=== PATIENT | male | born 1980 | race Asian ===

== ENCOUNTER 2017-01-19 10:22 | Emergency (ER) | payer MEDICAID, OTHER ==
--- NOTE | 2017-01-19 10:34 | CPEKG ---
Heart Rate: 64 RR Interval: 938 P-R Interval: 120 QRSD Interval: 102 QT Interval: 400 QTC Interval: 413 P [place]: 41 QRS [place]: 45 T Wave [place]: 23 EKG Severity - NORMAL ECG - EKG Impression: SINUS RHYTHM Electronically Signed By: Merrill Escalante 19-Jan-2017 13:44:19
[2017-01-19] MEDS ORDERED: NS 500 ML IV ONE (10:35)
[2017-01-19 10:41] VITALS: TEMP 97.5
[2017-01-19 10:54] LABS: % IMMATURE GRANULYOCYTES 0.1 % (0.0-1.1); ABSOLUTE IMMATURE GRANULOCYTES 0.01 10^3/uL (0.00-0.10); ADD DIFF? NO; ADD MORPH? NO; ADD SCAN? NO; ATYPICAL LYMPHOCYTE FLAG 0 (0-99); FRAGMENT RBC FLAG 0 (0-99); HEMATOCRIT 42.8 % (40.0-51.0); HEMOGLOBIN 14.2 g/dL (13.7-17.5); LEFT SHIFT FLG 0 (0-99); LIPEMIA HEMOLYSIS FLAG 80 (0-99); MEAN CELL HEMOGLOBIN 28.7 pg (27.9-34.1); MEAN CELL HEMOGLOBIN CONCENTR. 33.2 g/dL (32.4-36.7); MEAN CELL VOLUME 86.6 fL (81.5-99.8); MEAN PLATELET VOLUME 9.4 fL (8.7-11.7); PLATELET CLUMPS FLAG 30 (0-99); PLATELET COUNT 319 10^3/uL (150-400); RED BLOOD CELL COUNT 4.94 10^6/uL (4.40-6.38); RED CELL DISTRIBUTION WIDTH 13.4 % (11.5-15.2)
[2017-01-19 11:03] LABS: ANION GAP 10 mEq/L (8-16); CALCIUM 8.7 mg/dL (8.5-10.4); CARBON DIOXIDE 24 mEq/l (22-31); CHLORIDE 109 mEq/L (97-110); CREATININE 0.8 mg/dL (0.7-1.3); GLOMERULAR FILTRATION RATE > 60; GLUCOSE 102 mg/dL (70-100); POTASSIUM 4.2 mEq/L (3.5-5.2); SODIUM 143 mEq/L (134-144)
--- NOTE | 2017-01-19 11:03 | EDPHY ---
H & P Stated Complaint: Chest pain since 5am Time Seen by Provider: 01/19/17 10:35 - Personal History Current Tetanus Diphtheria and Acellular Pertussis (TDAP): Unsure - Medical/Surgical History Hx Asthma: No Hx Chronic Respiratory Disease: No Hx Diabetes: No Hx Cardiac Disease: No Hx Renal Disease: No Hx Cirrhosis: No Hx Alcoholism: No Hx HIV/AIDS: No Hx Splenectomy or Spleen Trauma: No Other PMH: DEAF. gerd - Social History Smoking Status: Never smoked Constitutional: Initial Vital Signs Temperature (C) 36.4 C 01/19/17 10:39 Heart Rate 63 01/19/17 10:39 Respiratory Rate 15 01/19/17 10:39 Blood Pressure 132/57 H 01/19/17 10:39 O2 Sat (%) 94 01/19/17 10:39 O2 Delivery Mode Room Air Allergies/Adverse Reactions: No Known Allergies Allergy (Unverified 02/09/12 17:36) Home Medications: Medication Instructions Recorded Ondansetron Odt [Zofran Odt] 4 mg PO Q4PRN PRN #20 tab 07/29/14 Tamsulosin HCl [Flomax] 0.4 mg PO DAILY PRN #5 cap 07/29/14 oxyCODONE/APAP 5/325 [Percocet 1 - 2 tab PO Q6-8PRN PRN #20 tab 07/29/14 5/325 (RX)] Medical Decision Making - Diagnostics Imaging Results: Imaging Impressions Chest X-Ray 01/19/17 10:36 Impression: Normal. No explanation for chest pain. Chest/Thorax CTA 01/19/17 11:34 Impression: 1. No visible pulmonary embolus. 2. Fatty liver. 3. Minimal central peribronchial thickening which could be related to mild airways disease/bronchitis. Findings discussed with Merrill Escalante MD, on 01/19/2017 at 1219 hours. ED Course/Re-evaluation: CHIEF COMPLAINT: Chest pain HISTORY OF PRESENT ILLNESS: 36-year-old deaf not believe gentleman. Am gathering information through a neck believe [employer] email designer actually in [facility] on his iPhone. He states that he had sharp chest pain this morning woke him from sleep at about 4:00 a.m.. He has had it before intermittently. He denies any shortness of breath nausea vomiting lightheadedness dizziness or any other symptoms. He states that the pain is sharp in a small area of his left chest that feels like a knife is stabbing. Denies any tightness, pressure, radiation of pain. He apparently has had this before in according to his it has been related to anxiety. His is currently out of town for 4 weeks and she believes via the phone that he is having anxiety once again. REVIEW OF SYSTEMS: A 10 point review of systems was performed and is negative with the exception of the elements mentioned in the history of present illness. PHYSICAL EXAM: HR, BP, O2 Sat, RR. Temp noted General Appearance: Alert, well hydrated, appropriate, and non-toxic appearing. Head: Atraumatic without scalp tenderness or obvious injury Eyes: Pupils equal, round, reactive to light and accommodation, EOMI, no trauma , no injection. Ears: Clear bilaterally, no perforation, normal landmarks Nose: Atraumatic, no rhinorrhea, clear. Throat: There is no erythema or exudates, no lesions, normal tonsils, mucus membranes moist. Neck: Supple, 2+ carotid upstroke, nontender, no lymphadenopathy. Respiratory: No retractions, no distress, no wheezes, and no accessory muscle use. Lungs are clear to auscultation bilaterally. Cardiovascular: Regular rate and rhythm, no murmurs, rubs, or gallops. Bilateral carotid, radial, dorsalis pedis, and posterior tibial pulses intact. Good capillary refill all extremities. Gastrointestinal: Abdomen is soft, nontender, non-distended, no masses, no rebound, no guarding, no peritoneal signs. Musculoskeletal: Normal active ROM of all extremities, atraumatic. Neurological: Alert, appropriate, and interactive. The patient has normal DTRs and non-focal cranial nerves, motor, sensory, and cerebellar exam. Skin: No rashes, good turgor, no nodules on palpation. Past medical history: Deaf otherwise unremarkable Past surgical history: Unremarkable Family history: Denies any significant cardiac history Social history: , employed, does not abuse tobacco drugs or alcohol DIAGNOSTICS/PROCEDURES/CRITICAL CARE TIME: The 12 lead EKG was interpreted by myself. See hard copy and/or "tracemaster" electronic copy for interpretation. Sinus mechanism no ischemia normal intervals Study: PA and Lateral Chest X-ray Indication: chest pain Results: After viewing the images myself on the PACS system. My interpretation of the images is: no acute process. The radiologist interpretation is pending at the time of this dictation. I have discussed the above x-rays with the radiologist. Study: CT angiography of the chest Indication: sharp pleuritic chest pain with elevated D-dimer Results: CT scan of the chest was obtained. The results of the study are normal. The study was read by the radiologist, Dr. Kraig Elkins. I viewed the images myself on the PACS system. DIFFERENTIAL DIAGNOSIS: The differential diagnosis for the patient's chest pain included but was not limited to myocardial ischemia, pulmonary embolus, chest wall pain, pleural inflammation, and pulmonary infectious causes. MEDICAL DECISION MAKING: This patient presents with atypical sharp chest pain which is mild and has resolved. In addition he has no associated symptoms or radiation of pain. In addition he is young with no significant family history of coronary artery disease. Once again all this information is obtained through the [email or web address] email designer on the phone in [facility]. We have an Radha director of customer acquisition coming. Laboratory studies chest x-ray and EKG are pending. 11:34 Elevated D-dimer. Plan for CT angiogram chest. Patient's chest CT and EKG and laboratory studies are unremarkable. This patient is having some sort of atypical chest pain in a young age group and I will discharge him home with close follow-up. His believes he is having anxiety since she has been gone for 2 weeks and he has presented like this in the past. She is on the iPhone with us and thinks he looks fine. - Data Points Laboratory Results: Laboratory Results 01/19/17 10:43 01/19/17 10:43 01/19/17 01/19/17 01/19/17 10:43 10:43 10:43 WBC 6.71 10^3/uL 10^3/uL (3.80-9.50) RBC 4.94 10^6/uL 10^6/uL (4.40-6.38) Hgb 14.2 g/dL g/dL (13.7-17.5) Hct 42.8 % % (40.0-51.0) MCV 86.6 fL fL (81.5-99.8) MCH 28.7 pg pg (27.9-34.1) MCHC 33.2 g/dL g/dL (32.4-36.7) RDW 13.4 % % (11.5-15.2) Plt Count 319 10^3/uL 10^3/uL (150-400) MPV 9.4 fL fL (8.7-11.7) Neut % (Auto) 48.1 % % (39.3-74.2) Lymph % (Auto) 45.0 % % (15.0-45.0) [place] % (Auto) 4.9 % % (4.5-13.0) Eos % (Auto) 1.5 % % (0.6-7.6) Baso % (Auto) 0.4 % % (0.3-1.7) Nucleat RBC Rel Count 0.0 % % (0.0-0.2) Absolute Neuts (auto) 3.22 10^3/uL 10^3/uL (1.70-6.50) Absolute Lymphs (auto) 3.02 10^3/uL H 10^3/uL (1.00-3.00) Absolute Monos (auto) 0.33 10^3/uL 10^3/uL (0.30-0.80) Absolute Eos (auto) 0.10 10^3/uL 10^3/uL (0.03-0.40) Absolute Basos (auto) 0.03 10^3/uL 10^3/uL (0.02-0.10) Absolute Nucleated RBC 0.00 10^3/uL 10^3/uL (0-0.01) Immature Gran % 0.1 % % (0.0-1.1) Immature Gran # 0.01 10^3/uL 10^3/uL (0.00-0.10) D-Dimer 2.18 ug/mLFEU H ug/mLFEU (0.00-0.50) Sodium 143 mEq/L mEq/L (134-144) Potassium 4.2 mEq/L mEq/L (3.5-5.2) Chloride 109 mEq/L mEq/L (97-110) Carbon Dioxide 24 mEq/l mEq/l (22-31) Anion Gap 10 mEq/L mEq/L (8-16) BUN 12 mg/dL mg/dL (7-23) Creatinine 0.8 mg/dL mg/dL (0.7-1.3) Estimated GFR > 60 Glucose 102 mg/dL H mg/dL (70-100) Calcium 8.7 mg/dL mg/dL (8.5-10.4) Troponin I < 0.012 ng/mL ng/mL (0-0.034) NT-Pro-B Natriuret Pep 29 pg/mL pg/mL (0-125) Medications Given: Discontinued Medications Sodium Chloride (Ns) 500 mls @ 0 mls/hr IV ONCE ONE PRN Reason: As Directed Stop: 01/19/17 10:36 Last Admin: 01/19/17 10:46 Dose: 500 mls Ibuprofen (Motrin) 600 mg PO EDNOW ONE Stop: 01/19/17 12:38 Last Admin: 01/19/17 12:39 Dose: 600 mg Departure - Departure Disposition: Home, Routine, Self-Care Clinical Impression: Atypical chest pain Condition: Good Instructions: Chest Pain (ED) Additional Instructions: 1. Follow up with Dr. Oliver for symptoms unresolved in the next few days. 2. Return to the ED for worsening chest pain or other worsening of condition. Referrals: Brian Oliver MD [Primary Care Provider] - As per Instructions
[2017-01-19 11:14] VITALS: RESP 16
[2017-01-19 11:15] LABS: TROPONIN I < 0.012 ng/mL (0-0.034)
[2017-01-19] MEDS ORDERED: IOPAMIDOL (ISOVUE 370) 100 ML BTL IV ONE (11:38)
[2017-01-19] MEDS ORDERED: IBUPROFEN 600 MG TAB PO ONE (12:37)
[2017-01-19 12:41] VITALS: BP 137/67; PULSE 69; O2SAT 97
== END 2017-01-19 12:45 | disposition home or self-care (01) ==
DX: R07.89 Other chest pain (principal)
CPT/HCPCS: Q9967

== ENCOUNTER → 2018-05-15 | Outpatient (CLI) | payer OTHER | LOC: FIMAGING 10:28 | PROVIDERS: ATTEND Family Medicine | DX: M75.91 Shoulder lesion, unspecified, right shoulder (principal); M12.811 Other specific arthropathies, not elsewhere classified, right shoulder ==